=== PATIENT | female | born 1985 | race African-American/Black ===

== ENCOUNTER 2017-09-24 20:40 | Emergency (ER) | payer SELFPAY ==
[~2017-09-24] VITALS: Ht 175.3 cm; Wt 54.2 kg
[2017-09-24] MEDS ORDERED: OXYcodone/APAP 5/325MG TABLET PO ONE (21:00)
[2017-09-24] MEDS ORDERED: KETOROLAC 30 MG/1 ML IM ONE (21:00)
[2017-09-24] MEDS ORDERED: KETOROLAC 30 MG/1 ML ONE (21:31)
[2017-09-24] MEDS ORDERED: OXYcodone/APAP 5/325MG TABLET ONE (21:31)
[2017-09-24 22:48] LABS: MEAN CORPUSCULAR HEMOGLOBIN 30.6 pg (27.0-34.8); MEAN CORPUSCULAR HGB CONC 33.4 g/dL (32.4-35.8); MEAN CORPUSCULAR VOLUME 91.4 fL (80-100); MEAN PLATELET VOLUME 7.5 fL (7.4-10.4); PLATELET COUNT 246 x10^3/uL (130-400); RED BLOOD COUNT 3.86 x10^6/uL (3.82-5.3)
[2017-09-24 23:01] LABS: ALANINE AMINOTRANSFERASE 32 U/L (12-78); ALBUMIN 3.7 g/dL (3.4-5.0); ANION GAP 11 mmol/L (5-15); CALCIUM 8.2 mg/dL (8.5-10.1); CHLORIDE 104 mmol/L (98-107); CREATININE 1.09 mg/dL (0.55-1.02)
[2017-09-24 23:05] LABS: ALKALINE PHOSPHATASE 69 U/L (45-117); BILIRUBIN,TOTAL 0.4 mg/dL (0.2-1.0); TOTAL PROTEIN 7.5 g/dL (6.4-8.2); TROPONIN I < 0.015 ng/mL (0.000-0.045)
[2017-09-24 23:07] LABS: MD YES
[2017-09-24 23:12] LABS: <PLATELET ESTIMATE> ADEQUATE; <PLT MORPHOLOGY> NORMAL PLT MORPH; <RBC MORPHOLOGY> NORMAL; EOS#(MANUAL) 0.27 x10^3/uL (0.0-0.4); EOS% (MANUAL) 4 % (1-7); LYMPH#(MANUAL) 2.75 x10^3/uL (1-3.4); LYMPHS% (MANUAL) 41 % (22-44); MONOS#(MANUAL) 0.54 x10^3/uL (0.3-2.7); MONOS% (MANUAL) 8 % (2-9); REACTIVE LYMPHS % (MANUAL) 3 % (0-0); SEG#(MANUAL) 2.95 x10^3/uL (1.8-6.8); SEGS% (MANUAL) 44 % (42-75)
[2017-09-24 23:36] VITALS: BP 142/97
== END 2017-09-24 23:44 | disposition home or self-care (01) ==
LOC: ED 23:28
DX: S29.011A Strain of muscle and tendon of front wall of thorax, initial encounter (principal); W20.8XXA Other cause of strike by thrown, projected or falling object, initial encounter; Y93.89 Activity, other specified; Y92.89 Other specified places as the place of occurrence of the external cause; Y99.2 Volunteer activity
CPT/HCPCS: 36415; 71101; 80053; 84484; 85025; 93005; 96372; 99285; J1885

== ENCOUNTER 2019-09-01 22:23 | Emergency (ER) | payer SELFPAY ==
[~2019-09-01] VITALS: Ht 170.2 cm; Wt 71.5 kg
[2019-09-01] MEDS ORDERED: ACETAMINOPHEN 500 MG TABLET PO ONE (23:00)
[2019-09-01] MEDS ORDERED: SODIUM CHLORIDE 0.9% 1,000ML IVBOLUS ONE (23:00)
[2019-09-01] MEDS ORDERED: KETOROLAC 30 MG/1 ML IVPush ONE (23:00)
[2019-09-01 23:30] LABS: BASOPHILS # (AUTO) 0.03 x10^3/uL (0-0.1); BASOPHILS % (AUTO) 0 % (0-1); EOSINOPHILS # (AUTO) 0.05 x10^3/uL (0-0.4); EOSINOPHILS % (AUTO) 1 % (1-7); LYMPHOCYTES # (AUTO) 0.98 x10^3/uL (1-3.4); LYMPHOCYTES % (AUTO) 8 % (22-44); MD NO; MEAN CORPUSCULAR HEMOGLOBIN 30.5 pg (27.0-34.8); MEAN CORPUSCULAR HGB CONC 33.5 g/dL (32.4-35.8); MEAN CORPUSCULAR VOLUME 90.8 fL (80-100); MEAN PLATELET VOLUME 8.7 fL (7.4-10.4); MONOCYTES % (AUTO) 3 % (2-9); NEUTROPHILS # (AUTO) 10.47 x10^3/uL (1.8-6.8); NEUTROPHILS % (AUTO) 88 % (42-75); PLATELET COUNT 164 x10^3/uL (130-400); RED BLOOD COUNT 3.64 x10^6/uL (3.82-5.3); RED CELL DISTRIBUTION WIDTH 13.9 % (9.6-15.2)
[2019-09-01] MEDS ORDERED: AZITHROMYCIN 500 MG in SODIUM CHLORIDE 0.9% 250 ML IV ONE (23:30)
[2019-09-01] MEDS ORDERED: CEFTRIAXONE PMX 1GM/50ML 50 ML IV ONE (23:30)
[2019-09-01 23:38] LABS: ALANINE AMINOTRANSFERASE 12 U/L (12-78); ALBUMIN 3.6 g/dL (3.4-5.0); ANION GAP 11 mmol/L (5-15); CALCIUM 8.3 mg/dL (8.5-10.1); CHLORIDE 101 mmol/L (98-107)
[2019-09-01 23:41] LABS: ALKALINE PHOSPHATASE 68 U/L (45-117); BILIRUBIN,TOTAL 0.7 mg/dL (0.2-1.0); CREATININE 1.03 mg/dL (0.55-1.02); TOTAL PROTEIN 7.4 g/dL (6.4-8.2)
[2019-09-02] MEDS ORDERED: KETOROLAC 30 MG/1 ML ONE (00:07)
[2019-09-02] MEDS ORDERED: CEFTRIAXONE PMX 1GM/50ML 50 ML ONE (00:22)
[2019-09-02] MEDS ORDERED: ACETAMINOPHEN 500 MG TABLET ONE (00:23)
--- NOTE | 2019-09-02 00:59 | NUR ---
VS UPDATED. PT. RESTING ON GURNEY WITH FAMILY AT BS. NO DISTRESS NOTED. IV ABX INFUSING PER ORDER. 2 SETS OF BLOOD CULTURES WERE COMPLETED PRIOR TO INITIATING IV ABX. IVF COMPLTED. FAMLY AT BS FOR SUPPORT.
[2019-09-02 02:07] VITALS: BP 118/74
== END 2019-09-02 02:10 | disposition home or self-care (01) ==
LOC: ED 09-02 01:30
DX: J15.9 Unspecified bacterial pneumonia (principal)
CPT/HCPCS: 36415; 71046; 80053; 85025; 87040; 96365; 96367; 96375; 99284; J0456; J0696; J1885; J7030; J7050

== ENCOUNTER 2019-11-21 23:48 | Emergency (ER) | payer MEDICAID, OTHER ==
[~2019-11-21] VITALS: Ht 170.2 cm; Wt 64.9 kg
--- NOTE | 2019-11-22 00:15 | NUR ---
TASK RN: PT TO ED FOR BILAT FLANK PAIN, PAINFUL URINATION AND SORE THROAT STARTING TODAY. PT STATES HX KIDNEY STONES AND THIS FEELS SIMILAR. PT CONNECTED TO MONITORS. VSS. DR. JIMENEZ TO BS FOR ASSESSMENT. PT UP SELF TO RR WITH STEADY GATI TO PROVIDE UA SAMPLE. UA COLLECTED AND SENT. AWAITING RESULTS.
[2019-11-22] MEDS ORDERED: ONDANSETRON ODT 4 MG ONE (00:21)
[2019-11-22] MEDS ORDERED: HYDROcodone/APAP 5/325 TABLET ONE (00:21)
[2019-11-22] MEDS ORDERED: HYDROcodone/APAP 5/325 TABLET PO ONE (00:30)
[2019-11-22] MEDS ORDERED: ONDANSETRON ODT 4 MG PO ONE (00:30)
--- NOTE | 2019-11-22 00:30 | NUR ---
task rn: open hearth laborer to bs.
[2019-11-22 00:39] LABS: BASOPHILS # (AUTO) 0.05 x10^3/uL (0-0.1); BASOPHILS % (AUTO) 1 % (0-1); EOSINOPHILS # (AUTO) 0.09 x10^3/uL (0-0.4); EOSINOPHILS % (AUTO) 2 % (1-7); LYMPHOCYTES # (AUTO) 2.17 x10^3/uL (1-3.4); LYMPHOCYTES % (AUTO) 45 % (22-44); MD NO; MEAN CORPUSCULAR HEMOGLOBIN 30.7 pg (27.0-34.8); MEAN CORPUSCULAR HGB CONC 32.7 g/dL (32.4-35.8); MEAN PLATELET VOLUME 8.2 fL (7.4-10.4); MONOCYTES # (AUTO) 0.39 x10^3/uL (0.2-0.8); MONOCYTES % (AUTO) 8 % (2-9); NEUTROPHILS # (AUTO) 2.09 x10^3/uL (1.8-6.8); NEUTROPHILS % (AUTO) 44 % (42-75); PLATELET COUNT 216 x10^3/uL (130-400); RED BLOOD COUNT 4.05 x10^6/uL (3.82-5.3); RED CELL DISTRIBUTION WIDTH 16.5 % (9.6-15.2)
[2019-11-22 00:49] LABS: CULTURE INDICATED? NO; HCG UR SG 1.013 (1.003-1.030); MICROSCOPIC AUTO
[2019-11-22 00:51] LABS: ALANINE AMINOTRANSFERASE 30 U/L (12-78); ALBUMIN 4.1 g/dL (3.4-5.0); ANION GAP 10 mmol/L (5-15); CALCIUM 8.6 mg/dL (8.5-10.1); CHLORIDE 107 mmol/L (98-107); CREATININE 1.04 mg/dL (0.55-1.02)
[2019-11-22 00:53] LABS: ALKALINE PHOSPHATASE 60 U/L (45-117); BILIRUBIN,TOTAL 0.3 mg/dL (0.2-1.0); TOTAL PROTEIN 8.2 g/dL (6.4-8.2)
--- NOTE | 2019-11-22 01:02 | NUR ---
task rn: all results back at this time. chart up for recheck.
--- NOTE | 2019-11-22 01:11 | NUR ---
task rn: per Dr. Russ, plan to dc
[2019-11-22 01:31] VITALS: BP 129/92
== END 2019-11-22 01:33 | disposition home or self-care (01) ==
LOC: ED 11-22 00:59
DX: R10.30 Lower abdominal pain, unspecified (principal); J02.8 Acute pharyngitis due to other specified organisms; B97.89 Other viral agents as the cause of diseases classified elsewhere; Z87.891 Personal history of nicotine dependence
CPT/HCPCS: 36415; 80053; 81001; 81025; 83690; 85025; 87081; 87880; 99283; Q0162

== ENCOUNTER 2020-09-22 10:28 | Emergency (ER) | payer MEDICAID ==
[~2020-09-22] VITALS: Ht 170.2 cm; Wt 60.0 kg
[~2020-09-22 10:28] MED LIST: ACET325T26 PO; ACID1TAB7 PO; ONDA4TAB13 PO
[2020-09-22 11:28] LABS: BASOPHILS % (AUTO) 2 % (0-1); EOSINOPHILS % (AUTO) 2 % (1-7); LYMPHOCYTES % (AUTO) 38 % (22-44); MD NO; MEAN CORPUSCULAR HEMOGLOBIN 29.8 pg (27.0-34.8); MEAN CORPUSCULAR HGB CONC 33.1 g/dL (32.4-35.8); MEAN PLATELET VOLUME 8.2 fL (7.4-10.4); MONOCYTES % (AUTO) 6 % (2-9); NEUTROPHILS % (AUTO) 53 % (42-75); PLATELET COUNT 202 x10^3/uL (130-400); RED BLOOD COUNT 4.22 x10^6/uL (3.82-5.3); RED CELL DISTRIBUTION WIDTH 15.2 % (9.6-15.2)
[2020-09-22 11:39] LABS: ALANINE AMINOTRANSFERASE 37 U/L (12-78); ALBUMIN 4.5 g/dL (3.4-5.0); ANION GAP 12 mmol/L (5-15); CALCIUM 8.7 mg/dL (8.5-10.1); CHLORIDE 106 mmol/L (98-107); CREATININE 1.07 mg/dL (0.55-1.02)
[2020-09-22 11:41] LABS: ALKALINE PHOSPHATASE 64 U/L (45-117); BILIRUBIN,TOTAL 0.8 mg/dL (0.2-1.0); TOTAL PROTEIN 7.9 g/dL (6.4-8.2)
--- NOTE | 2020-09-22 12:12 | NUR ---
REFUND SPECIALIST: PT TO ROOM FROM LOBBY.
--- NOTE | 2020-09-22 12:21 | NUR ---
PT IS A 35F COMPLAINING OF RIGHT FLANK PAIN SINCE LAST NIGHT. SHE IS UNABLE TO URINATE AND COMPLAINS OF RIGHT LOWER QUADRANT PAIN WHEN SHE TRIES TO URINATE. SHE WAS SEEN IN THE ER RECENTLY AND HAS A HX OF KIDNEY STONES. SPOUSE AT BEDSIDE. LABS HAVE BEEN DRAWN AND PROVIDER AT BEDSIDE. BP AND SP02 MONITORS IN PLACE. CALL LIGHT WITHIN REACH.
[2020-09-22] MEDS ORDERED: SODIUM CHLORIDE FLUSH 10ML SYR IVF ONE (12:30)
[2020-09-22] MEDS ORDERED: ONDANSETRON 2MG/ML, 2ML IVPush ONE (12:30)
[2020-09-22] MEDS ORDERED: FAMOTIDINE 20 MG/2 ML IV ONE (12:30)
[2020-09-22] MEDS ORDERED: MAALOX/HYOSCYAMINE/LIDOCAINE 45 ML BTL PO ONE (12:30)
[2020-09-22] MEDS ORDERED: SODIUM CHLORIDE 0.9% 1,000ML IVBOLUS ONE (12:30)
[2020-09-22] MEDS ORDERED: ONDANSETRON 2MG/ML, 2ML ONE (12:46)
[2020-09-22] MEDS ORDERED: FAMOTIDINE 20 MG/2 ML ONE (12:47)
[2020-09-22] MEDS ORDERED: MAALOX/HYOSCYAMINE/LIDOCAINE 45 ML BTL ONE (12:47)
--- NOTE | 2020-09-22 13:01 | NUR ---
PT MEDICATED PER SEP. VSS. IV FLUIDS INFUSING AT THIS TIME
[2020-09-22 14:11] LABS: MICROSCOPIC AUTO
--- NOTE | 2020-09-22 14:28 | NUR ---
URINE COLLECTED AND SENT TO LAB. PATIENT RESTING WITH SPOUSE AT BEDSIDE. VITALS UPDATED, CALL LIGHT WITHIN REACH.
--- NOTE | 2020-09-22 15:24 | NUR ---
PT TO CT VIA [facility]
--- NOTE | 2020-09-22 15:51 | NUR ---
PT UP TO BEDSIDE COMMODE WITH FOR ASSISTANCE. PAIN NOW 8/[address] NOTIFIED PROVIDER, AWAITING ORDERS
[2020-09-22] MEDS ORDERED: KETOROLAC 30 MG/1 ML ONE (15:53)
--- NOTE | 2020-09-22 15:57 | NUR ---
MEDICATED PT PER ORDERS. CALL LIGHT WITHIN REACH. SPOUSE AT BEDSIDE.
[2020-09-22] MEDS ORDERED: KETOROLAC 30 MG/1 ML IVPush ONE (16:00)
[2020-09-22 16:34] VITALS: BP 118/60
--- NOTE | 2020-09-22 16:36 | NUR ---
Patient/Caregiver given discharge instructions and they have confirmed that they understand the instructions. Patient ambulatory with steady gait.
== END 2020-09-22 16:37 | disposition home or self-care (01) ==
LOC: ED 14:54
DX: R10.9 Unspecified abdominal pain (principal); M54.5 Low back pain; R30.0 Dysuria; I49.8 Other specified cardiac arrhythmias
CPT/HCPCS: 36415; 74018; 74176; 80053; 81001; 84703; 85025; 87086; 93005; 96361; 96374; 96375; 99285; J1885; J2405; J7030